=== PATIENT | male | born 1990 | race Caucasian/White ===

== ENCOUNTER 2022-09-28 02:05 | Emergency (ER) | payer OTHER, SELFPAY ==
[2022-09-28 02:02] VITALS: BP 123/74; PULSE 85; RESP 16; TEMP 36.8; O2SAT 99
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
[2022-09-28] MEDS: Ibuprofen 600 MG TAB PO (02:44)
[2022-09-28 04:18] VITALS: BP 121/68; PULSE 70; RESP 16; TEMP 36.8; O2SAT 99
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
== END 2022-09-28 04:52 ==
PROVIDERS: Emergency Provider Emergency Medicine
DX: S40.011A Contusion of right shoulder, initial encounter (principal); V48.0XXA Car driver injured in noncollision transport accident in nontraffic accident, initial encounter; F10.920 Alcohol use, unspecified with intoxication, uncomplicated
CPT/HCPCS: 99283; 73030